=== PATIENT | female | born 1990 | race Caucasian/White ===

== ENCOUNTER 2023-06-12 18:51 | Emergency (ER) | payer BC, SELFPAY ==
[2023-06-12 18:53] VITALS: BP 123/84
[2023-06-12 19:43] VITALS: BP 123/58
[2023-06-12 20:00] VITALS: BP 106/77
--- NOTE | 2023-06-12 20:46 | ED.GENMED ---
History of Present Illness
General
Chief Complaint: Headache
Source: patient
Time Seen by Provider: 06/12/23 20:20
Travel History
Have you had any contact with someone who has COVID-19?: No
Do you have any symptoms of coronavirus? Fever > 100 degrees, chills, cough, shortness of breath, sore throat, loss of taste or smell, muscle aches, or headache?: No
History of Present Illness
History of Present Illness:
This patient is a 32-year-old female who says she has been having headaches on and off for about 2 months. The headache is not sudden onset or worst of life. It comes and goes without specific provoking or relieving factors and at first she
thought it was related to tension or the fact that she is about 3 and [age] months . She is currently nursing. The dizziness is not a sense of spinning or vertigo, she does not feel off balance, but states that if she turns quickly she
momentarily feels a little lightheaded like she needs to 'catch myself'. She denies falls, numbness, tingling, focal weakness, diplopia, nausea, vomiting, fever, chills, chest pain, dyspnea. In the last 2 days she has noticed that the headache has
not been better with Motrin. She describes the pain as a 'pressure' and will sometimes be located on the top of the head, sometimes radiating to the ear and bilateral jaw. Today, she is optically concerned because she noted 'dense' in her scalp,
several of them, without associated drainage, redness, rash. Patient denies recent trauma, or other complaints.
Past History
Past History
ED Past Medical History: Psychiatric (anxiety) and Other (pcos, hypothyroidism, asthma, TMJ)
ED Past Surgical History:
Social History
Tobacco: Non-smoker
Alcohol: None
Drug: None
Personal:
Living: with family
Employment: Employed
Phy Exam
Physical Exam
Physical Exam:
GENERAL: Alert , in no apparent distress
EYE: pupils equal and reactive, no photophobia, no nystagmus, EOMI
NECK: Supple, no significant adenopathy.
ENT: o/p clr, mmm.
CARDIAC: Regular rate and rhythm .
LUNGS: Clear breath sounds bilaterally, no acute respiratory distress,
ABDOMEN: Soft, without focal tenderness, no r/g, no cvat
NEUROLOGICAL: Alert and oriented, no focal neuro deficits, motor 5/5, sens intact, visual stuart intact, gait wnl, [id number] normal
SKIN: Warm and dry, skin intact.
MUSCULOSKELETAL: No edema, well perfused.
PSYCH: Normal and appropriate interaction.
Course
Orders/Labs/Results
Orders:
Orders
06/12/23 20:44
0.9% Sodium Chloride 500 ml [Nss] 500 ml IV BOLUS
Ketorolac [Toradol] 15 mg IV NOW STA
06/12/23 20:46
CT Head W/o Iv Contrast Urgent
Comment:
Reason For Exam: mejia
06/12/23 21:34
Basic Metabolic Panel Urgent
Complete Blood Count/No Diff Urgent
TSH Urgent
Abnormal Lab Results
06/12/23
21:34
Hgb 11.9 L g/dL
(12.0-16.0)
Hct 34.8 L %
(37.0-47.0)
MCV 79.6 L fL
(81.0-99.0)
Carbon Dioxide 21 L mmol/L
(22-30)
BUN 23 H mg/dl
(7-17)
06/12/23 21:34
06/12/23 21:34
Vital Signs
Initial and Last Documented VS:
Initial Vital Signs
Temp Pulse Resp BP Pulse Ox
98.2 F 77 16 123/84 99
06/12/23 18:53 06/12/23 18:53 06/12/23 18:53 06/12/23 18:53 06/12/23 18:53
Last Documented Vital Signs
Temp Pulse Resp BP Pulse Ox
98.2 F 77 16 106/77 95
06/12/23 18:53 06/12/23 18:53 06/12/23 18:53 06/12/23 20:00 06/12/23 20:45
*Critical Care Note
Total Time (30-74mins, 75-104mins- exclusive of procedures): Not Applicable
Update Note
Update Note:
Patient presents to the Emergency Department with ___headache
Number and Complexity of Problems Addressed at the Encounter
� Chronic conditions affecting care:
� Acute Exacerbation and/or Progression of Chronic Illness:
� Differential Diagnosis includes: But not limited to tension headache, migraine, hypertension related headache, etc.
Amount and/or Complexity of Data to be Reviewed and Analyzed
� I performed an independent evaluation of and my interpretation is:
EKG:
CT:READ BY RADDavid NAD
Xrays:
Laboratory Studies:GENERALLY UNREMKARABLE
Other:
� Review of other/old records reveals:
� Clinical information was obtained by an independent historian:
� Prescriptions/Medications Considered but not given:
� Further testing considered but not performed:
Risk of Complications and/or Morbidity or Mortality of Patient Management
� Social determinants of health affecting care:
� Discussion with other providers (PCP, Hospitalists, Consultants, etc):
� Escalation of care including admission/observation vs risk of discharge considered: pt still has 'pressure' but no pain, dclines further meds. No 'red flag' findings in hx/phy to suggest ich/cva/dissection/CVT/etc. etc. Neuro
intact,no infectious s/xs, no meningismus, etc. Not sudden/worse of life etc. D/wpt import of f/ua nd reasons to rted.
ED Attending Note
-
Portions of this chart may have been created with voice recognition software.� Occasional wrong word or��sound alike� substitutions may have occurred due to the inherent limitations of voice recognition software.
Discharge Plan
Departure
Patient Disposition: Home (Routine Discharge)
Date of Disposition: 06/12/23
Time of Disposition: 22:25
Patient with high blood pressure during this ER visit?: Yes
Condition: Good
Discharge Problem:
Headache
Instructions: Headache, Adult (DC), BLOOD PRESSURE
Prescriptions:
No Action
alprazolam [Xanax] 0.5 mg tablet
0.5 mg PO HS PRN (Reason: anxiety) Qty: 10 0RF
Referrals:
Patricia Roche MD [Family Provider] - Next open appointment
Activity Restrictions/Additional Instructions:
IF YOU DEVELOP INCREASING/NEW/PERSISTENT PAIN, ANY VOMITING, NUMBNESS, CHANGE IN VISION/SPEECH/BALANCE, WEAKNESS, FEVER OR OTHER WORRISOME SIGNS, GO TO THE ER IMMEDIATELY!
Interventions
Interventions:
*Risk Screen - Suicide Last Done: 06/12/23 18:53
*General Assessment Last Done: 06/12/23 18:53
*Neglect/Abuse Screening Last Done: 06/12/23 18:53
ED- Fall Risk Assessment Last Done: 06/12/23 19:50
*ED COVID-19 Vaccine History Last Done: 06/12/23 18:53
ED- Neurological Assessment Last Done: 06/12/23 19:50
[2023-06-12] MEDS: TORADOL 15 MG IV (20:52)
[2023-06-12] MEDS: NSS 500 IV (20:52)
[2023-06-12 21:45] LABS: Hematocrit 34.8 % (37.0-47.0); Hemoglobin 11.9 g/dL (12.0-16.0); Mean Corp Hgb Conc. 34.2 g/dL (33.0-37.0); Mean Corpuscular Hgb 27.2 pg (27.0-31.0); Mean Corpuscular Volume 79.6 fL (81.0-99.0); Mean Platelet Volume 10.2 fL (7.4-10.4); Platelet Count 262 10^3/uL (130-400); Red Blood Cell Count 4.37 10^6/uL (4.20-5.40); Red Cell Dist. Width 13.2 % (11.5-14.5); White Blood Cell Count 6.4 10^3/uL (4.8-10.8)
[2023-06-12 22:01] LABS: Blood Urea Nitrogen 23 mg/dl (7-17); Calcium 9.4 mg/dl (8.4-10.2); Carbon Dioxide 21 mmol/L (22-30); Chloride 104 mmol/L (98-107); Glucose 85 mg/dl (70-99); Potassium 3.9 mmol/L (3.5-5.1); Sodium 137 mmol/L (135-145); eGFR > 60.00
[2023-06-12 22:32] LABS: TSH 1.64 uIU/ml (0.47-4.68)
[2023-06-12 22:38] VITALS: BP 115/84
== END 2023-06-12 22:41 | disposition home or self-care (01) ==
LOC: EMR 18:51
PROVIDERS: EMERGENCY PHYSICIAN Emergency Medicine; FAMILY PHYSICIAN Internal Medicine
DX: R51.9 Headache, unspecified (principal); R42 Dizziness and giddiness; R03.0 Elevated blood-pressure reading, without diagnosis of hypertension
CPT/HCPCS: 99284; 96374; 70450; 80048; 84443; 85027; 99285